=== PATIENT | female | born 1955 | race Caucasian/White ===

== ENCOUNTER 2018-06-08 09:10 | Outpatient (CLI) | payer OTHER | END 2018-06-08 09:22 | disposition home or self-care (01) | LOC: SONOGRAMA 09:10 | DX: E04.1 Nontoxic single thyroid nodule (principal) ==

== ENCOUNTER 2022-07-03 11:14 | Outpatient (CLI) | payer OTHER | END 2022-07-03 11:28 | disposition home or self-care (01) | LOC: MAMO-SONO 11:14 | DX: N64.59 Other signs and symptoms in breast (principal); R92.8 Other abnormal and inconclusive findings on diagnostic imaging of breast; C73 Malignant neoplasm of thyroid gland ==

== ENCOUNTER 2022-07-03 12:43 | Outpatient (CLI) | payer OTHER | END 2022-07-03 12:52 | disposition home or self-care (01) | LOC: LAB 12:43 | PROVIDERS: ATTEND Surgery | DX: C73 Malignant neoplasm of thyroid gland (principal) ==

== ENCOUNTER 2024-06-24 08:37 | Outpatient (CLI) | payer OTHER | END 2024-06-24 08:41 | disposition home or self-care (01) | LOC: MAMO-SONO 08:37 | DX: N64.4 Mastodynia (principal); Z12.31 Encounter for screening mammogram for malignant neoplasm of breast ==